=== PATIENT | male | born 1980 | race Caucasian/White ===

== ENCOUNTER 2023-10-17 08:00 | Outpatient (CLI) | payer OTHER ==
[2023-10-17 16:19] LABS: BILIRUBIN,URINE NEGATIVE (NEGATIVE); GLUCOSE, URINE (UA) NEGATIVE (NEGATIVE); KETONES,URINE (UA) NEGATIVE (NEGATIVE); LEUKOCYTE ESTERASE, URINE NEGATIVE (NEGATIVE); NITRITE,URINE NEGATIVE (NEGATIVE); OCCULT BLOOD,URINE SMALL (NEGATIVE); PROTEIN,URINE NEGATIVE (NEGATIVE); UROBILINOGEN,URINE 0.2 (NORMAL) E.U./dL (NORMAL)
[2023-10-17 16:21] LABS: CLARITY,URINE CLEAR (CLEAR)
[2023-10-17 16:37] LABS: BACTERIA,URINE None Seen /HPF (None Seen); RBC,URINE 0-5 /HPF (0-5); SQUAMOUS EPITHELIAL CELL,UR RARE Squamous (<= Few); WBC,URINE 0-3 /HPF (0-3)
== END 2023-10-17 23:59 | disposition home or self-care (01) ==
LOC: LAB 08:00
PROVIDERS: ATTEND Urology
DX: R31.9 Hematuria, unspecified (principal)
CPT/HCPCS: 81001; 81003; 87086

== ENCOUNTER 2023-12-17 11:53 | Day surgery (SDC) | payer OTHER ==
[2023-12-17] MEDS: LACTATED RINGERS 1,000 ML IV ONE ×2 (11:56→13:53)
[2023-12-17] MEDS ORDERED: iohexoL-240 10 ML VIAL IVP ONE (12:42)
[2023-12-17] MEDS ORDERED: LIDOCAINE 2% URO-JET 5 ML SYRINGE UR ONE (12:42)
--- NOTE | 2023-12-17 12:54 | ANESTHESIA ---
Pre-Anesthesia VS, & Labs - Diagnosis urethral stricture - Procedure cysto, urethral dilation Vital Signs: Temp Pulse Resp BP Pulse Ox O2 Flow Rate 36.6 C 76 18 133/98 H 99 12/17/23 12:02 12/17/23 12:02 12/17/23 12:02 12/17/23 12:02 12/17/23 12:02 Height: 5 ft 7 in Weight (kg): 79.5 kg Body Mass Index: 27.4 BMI Classification: Overweight - NPO >8 hours Home Medications and Allergies Home Medications: Ambulatory Orders Omeprazole 20 mg PO DAILY 12/11/23 Omeprazole 20 mg PO DAILY 12/11/23 Allergies/Adverse Reactions: Allergies Allergy/AdvReac Type Severity Reaction Status Date / Time bee venom protein (honey bee) Allergy Anaphylaxis Verified 12/11/23 15:00 Anes History & Medical History - Anesthetic History Anesthesia Complications: reports: No previous complications - Medical History Cardiovascular: reports: None Pulmonary: reports: None Gastrointestinal: reports: Other Urinary: reports: None Musculoskeletal: reports: None Endocrine/Autoimmune: reports: None Skin: reports: None Smoking Status: Former smoker Psychosocial: reports: Alcohol (burbon almost nightly) - Surgical History Eyes Ears Nose Throat (EENT): reports: Other (eye muscle at 10yrs) Exam General: Alert, Oriented x3 Dental: WNL Mouth Opening: Greater than 4 Fingerbreadths Neck Mobility: Normal Mallampati classification: II Thyromental Distance: greater than 6 cm Respiratory: Lungs clear Cardiovascular: Regular rate Plan Anesthesia Type: General Consent for Procedure(s) Verified and Reviewed: Yes Code Status: Attempt Resuscitation ASA classification: 2-Mild systemic disease Is this case an emergency?: No
[2023-12-17] MEDS ORDERED: fentaNYL 100 MCG/2 ML VIAL IVP PRN (12:55)
[2023-12-17] MEDS ORDERED: MORPHINE 2 MG/ML CARPUJECT IVP PRN (12:55)
[2023-12-17] MEDS ORDERED: ONDANSETRON 4 MG/2 ML VIAL IVP PRN ×2 (12:55→13:49)
[2023-12-17] MEDS ORDERED: HYDROmorphone 0.5 MG/0.5 ML SYRINGE IVP PRN (12:55)
[2023-12-17] MEDS ORDERED: NALOXONE 0.4 MG/ML VIAL IVP PRN (12:55)
[2023-12-17] MEDS ORDERED: ePHEDrine 50 MG/ML VIAL IVP PRN (12:55)
[2023-12-17] MEDS ORDERED: METOCLOPRAMIDE 10 MG/2 ML VIAL IVP PRN (12:55)
[2023-12-17] MEDS ORDERED: ATROPINE ABBOJECT 1 MG/10 ML SYRINGE IVP PRN (12:55)
[2023-12-17] MEDS ORDERED: LACTATED RINGERS 1,000 ML IV SCH (13:00)
[2023-12-17] MEDS ORDERED: MIDAZOLAM 2 MG/2 ML VIAL ONE (13:03)
[2023-12-17] MEDS ORDERED: fentaNYL 100 MCG/2 ML VIAL ONE (13:03)
[2023-12-17] MEDS ORDERED: PROPOFOL 200 MG/20 ML VIAL IVP ONE (13:03)
[2023-12-17] MEDS ORDERED: LIDOCAINE-PF 2% 10 ML AMP SUBQ ONE (13:06)
[2023-12-17] MEDS ORDERED: ceFAZolin 1 GM VIAL ONE (13:30)
[2023-12-17] MEDS ORDERED: ONDANSETRON 4 MG/2 ML VIAL ONE (13:36)
[2023-12-17] MEDS ORDERED: DEXAMETHASONE 4 MG/ML VIAL ONE (13:36)
[2023-12-17] MEDS ORDERED: KETOROLAC 30 MG/ML VIAL ONE (13:37)
[2023-12-17] MEDS: LIDOCAINE 2% URO-JET 5 ML SYRINGE IS ONE (13:37)
[2023-12-17] MEDS ORDERED: HYDROcod/ACETAM 5/325 MG TABLET PO PRN (13:49)
--- NOTE | 2023-12-17 13:55 | Discharge Plan ---
Discharge Plan Problem Reviewed?: Yes Disposition: Home, Self Care Condition: Good Prescriptions: Docusate Sodium 100Mg Capsule [Colace 100Mg Capsule] 100 mg PO DAILY #7 cap oxyCODONE [Roxicodone] 5 mg PO Q4H PRN #10 tablet PRN Reason: Pain Diet: Regular Activity Restrictions: Additional Comments (as instructed) Shower Restrictions: No Driving Restrictions: No Instruction Topics: Orosco Catheter Remove, Catheter Bag Urinary Empty Clean Additional Instructions or Follow Up instructions: Please remove your catheter as instructed in the morning of December 19 You will be contacted for follow-up with Dr. Meyer in 6 weeks time No Smoking: If you smoke, Please STOP! Call for help. Follow-up with: Michael Meyer MD [Provider Admit Priv/Credential] -
--- NOTE | 2023-12-17 13:58 | OPERATIVE REPORT ---
Operative Report - General Procedure Date: 12/17/23 Planned Procedure: Cystoscopy, urethral dilation Pre-Op Diagnosis: urethral stricture Procedure Performed: Cystoscopy, urethral dilation, complex Orosco placement Post Op Diagnosis: urethral stricture - Procedure Note Primary Surgeon: Mitch Anesthesia Provider: AINSLEY Willis Anesthesia Technique: General LMA Pathology: none Estimated Blood Loss (mL): 1 Findings: dense urethral stricture in pendulous urethra Complications: none - Other Other Information/Narrative: After informed consent the patient was brought to the OR and laid supine position. The patient was anesthetized per anesthesia protocols and prepped draped in usual sterile fashion in the dorsolithotomy position. A formal timeout was performed reconfirming the patient, procedure. A 22 [place] cystoscope was advanced into the distal urethra. In the pendulous urethra close to the bulbar area we noted a dense urethral stricture. A sensor wire was placed through this. We then used Holliday sounds to dilate this stricture from 12 [place] to 24 [place]. The rigid cystoscope was then readvanced next the wire and we could see that he had an otherwise normal prostate and bladder. A 20 [place] huslia tip catheter was placed over the wire into the bladder, 10 cc was placed in the balloon. There was minimal bleeding. This concluded the procedure the patient tolerated the procedure well. He was brought to the PACU without further incident. He will take the catheter out in 3 days time and follow-up in 6 weeks time
--- NOTE | 2023-12-17 14:04 | ANESTHESIA POST OP EVALUATION ---
Anesthesia Post Eval - Post Anesthesia Eval Vitals: Last Vital Signs Temp 36.2 C L 12/17/23 14:00 Pulse 83 12/17/23 14:00 Resp 11 L 12/17/23 14:00 BP 131/94 H 12/17/23 14:00 Pulse Ox 97 12/17/23 14:00 O2 Flow Rate CV Function Including HR & BP: Stable Pain Control: Satisfactory Nausea & Vomiting: Negative Mental Status: Baseline Respiratory Status: Airway Patent Hydration Status: Satisfactory Anesthesia Complications: None
[2023-12-17 15:02] VITALS: BP 137/93; O2SAT 16
== END 2023-12-17 11:54 | disposition home or self-care (01) ==
LOC: SDS 11:53
PROVIDERS: ATTEND Urology
DX: N35.814 Other anterior urethral stricture, male (principal); Z87.891 Personal history of nicotine dependence
CPT/HCPCS: 52281; J7120; Q9966